=== PATIENT | female | born 1970 | race African-American/Black ===

== ENCOUNTER 2017-08-25 16:55 | Emergency (ER) | payer OTHER ==
[~2017-08-25] VITALS: Ht 170.2 cm; Wt 76.7 kg
[2017-08-25 17:08] VITALS: BP 161/86
[2017-08-25] MEDS ORDERED: ABILIFY10 MG PO (17:09)
[2017-08-25] MEDS ORDERED: METFORMIN HCL500 MG PO (17:09)
[2017-08-25] MEDS ORDERED: TRAMADOL 50 MG50 MG PO (17:27)
== END 2017-08-25 17:38 | disposition home or self-care (01) ==
LOC: M.ERS 16:55
DX: E11.42 Type 2 diabetes mellitus with diabetic polyneuropathy (principal); F32.9 Major depressive disorder, single episode, unspecified; I10 Essential (primary) hypertension

== ENCOUNTER 2017-10-11 13:30 | Emergency (ER) | payer OTHER ==
[~2017-10-11] VITALS: Ht 170.2 cm; Wt 76.7 kg
[~2017-10-11 13:30] MED LIST: ABILIFY10 MG PO; METFORMIN HCL500 MG PO; TRAMADOL 50 MG50 MG PO
[2017-10-11] MEDS ORDERED: LANTUS100 UNIT/M SUBQ (13:41)
[2017-10-11] MEDS ORDERED: ADDERALL 10 MG10 MG PO (13:41)
[2017-10-11] MEDS ORDERED: NOVOLOG100 UNIT/1 SUBQ (13:41)
[2017-10-11 14:18] VITALS: BP 160/98
== END 2017-10-11 14:20 | disposition home or self-care (01) ==
LOC: M.ERS 13:30
DX: B00.9 Herpesviral infection, unspecified (principal); I10 Essential (primary) hypertension; E11.9 Type 2 diabetes mellitus without complications; F32.9 Major depressive disorder, single episode, unspecified

== ENCOUNTER 2017-11-27 17:27 | Emergency (ER) | payer OTHER ==
[~2017-11-27] VITALS: Ht 172.7 cm; Wt 76.7 kg
[~2017-11-27 17:27] MED LIST changes: +ADDERALL 10 MG10 MG PO; +LANTUS100 UNIT/M SUBQ; +NOVOLOG100 UNIT/1 SUBQ
[2017-11-27] MEDS ORDERED: PENICILLIN V P500 MG PO (18:30)
[2017-11-27] MEDS ORDERED: TRAMADOL 50 MG50 MG PO (18:30)
[2017-11-27] MEDS ORDERED: NABUMETONE 750750 M1 PO (18:30)
[2017-11-27 18:37] VITALS: BP 146/93
== END 2017-11-27 18:38 | disposition home or self-care (01) ==
LOC: M.ERS 17:27
DX: K04.7 Periapical abscess without sinus (principal); I10 Essential (primary) hypertension; E11.9 Type 2 diabetes mellitus without complications; F32.9 Major depressive disorder, single episode, unspecified